=== PATIENT | female | born 1960 | race Two or more races ===

== ENCOUNTER 2024-09-30 09:04 | Emergency (ER) | payer BC, OTHER ==
[2024-09-30] MEDS: Ketorolac 30 MG/ML SDV IM ONE (09:40)
[2024-09-30 09:49] LABS: BASOPHILS PERCENT AUTO 0.6 % (0.2-1.5); EOSINOPHILS ABSOLUTE AUTO 0.2 x10-3/uL (0.0-0.8); EOSINOPHILS PERCENT AUTO 2.7 % (0.6-8.1); HEMOGLOBIN 14.7 g/dL (11.4-15.5); LYMPHOCYTES ABSOLUTE AUTO 1.6 x10-3/uL (1.0-4.4); LYMPHOCYTES PERCENT AUTO 24.3 % (18.4-52.1); MEAN CORPUSCULAR HEMOGLOBIN 31.9 pg (23.9-33.9); MEAN CORPUSCULAR HGB CONC 34.2 g/dL (31.9-34.8); MEAN CORPUSCULAR VOLUME 93.3 fL (76.7-100.5); MONOCYTES ABSOLUTE AUTO 0.5 x10-3/uL (0.3-1.0); MONOCYTES PERCENT AUTO 8.2 % (4.4-15.7); NEUTROPHILS ABSOLUTE AUTO 4.2 x10-3/uL (1.5-6.3); NEUTROPHILS PERCENT AUTO 64.2 % (30.8-76.2); PLATELET COUNT,PLT 229 x10(3)uL (151-488); RED BLOOD CELL COUNT 4.61 x10(6)uL (3.60-5.20); RED CELL DISTRIBUTION WIDTH 13.5 % (12.3-16.5); WHITE BLOOD CELL COUNT,WBC 6.6 x10-3/uL (3.0-10.3)
[2024-09-30 09:52] LABS: BLOOD UREA NITROGEN,BUN 12 mg/dL (7-18); CALCIUM 9.2 mg/dL (8.6-10.2); CARBON DIOXIDE,CO2 28 mmol/L (21-32); CHLORIDE,CL 103 mmol/L (100-110); CREATININE 0.8 mg/dL (0.55-1.02); EST CRCL DRUG DOSING (CG) 71.81 mL/min; ESTIMATED GFR 84 mL/min (>60); GLUCOSE RANDOM 105 mg/dL (80-116); POTASSIUM,K 3.8 mmol/L (3.5-5.3); SODIUM,NA 140 mmol/L (135-145)
[2024-09-30 09:58] LABS: ALANINE AMINOTRANSFERASE,ALT 18 U/L (12-36); ALBUMIN 3.9 g/dL (3.2-4.6); ALKALINE PHOSPHATASE 109 IU/L (56-112); ASPARTATE AMNIOTRANSFERASE,AST 17 IU/L (5-25); BILIRUBIN TOTAL 0.5 mg/dL (0.1-1.3)
[2024-09-30 11:13] VITALS: BP 132/76; PULSE 67
== END 2024-09-30 11:06 | disposition home or self-care (01) ==
LOC: FB.ED 09:04
DX: S13.9XXA Sprain of joints and ligaments of unspecified parts of neck, initial encounter (principal); V49.59XA Passenger injured in collision with other motor vehicles in traffic accident, initial encounter; Y93.89 Activity, other specified
CPT/HCPCS: 36415; 70450; 71046; 72125; 80053; 85025; 96372; 99284; J1885